=== PATIENT | female | born 1965 ===

== ENCOUNTER 2023-01-22 00:17 | Emergency (ER) | payer BC, SELFPAY ==
[2023-01-22] MEDS ORDERED: NA CHLORIDE 0.9% 1,000 ML ONE (01:09)
[2023-01-22 01:17] LABS: Absolute Lymphocytes (CBC) 1.9 K/uL (0.7-4.9); Hematocrit 39.7 % (36.0-45.0); Lymphocytes % 16.4 % (15.3-44.8); MCV 89.4 fL (80-100); MPV 6.9 fL (7.6-11.3); Platelets 307 thou/uL (152-406); RBC Red Blood Cell Count 4.44 M/uL (3.86-4.86)
[2023-01-22 01:32] LABS: Potassium 3.4 mEq/L (3.5-5.1)
[2023-01-22] MEDS ORDERED: ACETAMINOPHEN 500 MG TAB ONE (02:33)
[2023-01-22] MEDS ORDERED: KETOROLAC 30 MG/ML INJ ONE (02:33)
--- NOTE | 2023-01-22 02:37 | ER ---
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 Coronavirus screen: Vaccine status: Patient reports receiving the 2nd dose of the covid vaccine. Ebola Screen: Patient negative for fever greater than or equal to 101.5 degrees Fahrenheit, and additional compatible Ebola Virus Disease symptoms. Initial Sepsis Screen: Does the patient meet any 2 criteria? No. Patient's initial sepsis screen is negative. Does the patient have a suspected source of infection? No. Patient's initial sepsis screen is negative. Risk Assessment: Do you want to hurt yourself or someone else? Patient reports no desire to harm self or others. 00:39 Method Of Arrival: Wheelchair kl 00:39 Acuity: DAREK 3 kl Triage Assessment: 00:41 General: Appears distressed, uncomfortable, Behavior is cooperative. Pain: Complains of kl pain in left side of the back of head Pain currently is 6 out of 10 on a pain scale. Injury Description: Head injury sustained to right parietal area is closed, did not have loss of consciousness, was sustained 2-4 hours ago. Historical: - Allergies: 00:41 No Known Allergies; kl - Immunization history:: Adult Immunizations unknown. - Social history:: Smoking status: Patient denies any tobacco usage or history of. Screenin:19 [facility] ED Fall Risk Assessment (Adult) History of falling in the last 3 months, jb4 including since admission. Abuse screen: Denies threats or abuse. Nutritional screening: No deficits noted. Tuberculosis screening: No symptoms or risk factors identified. Assessment: 01:17 General: Appears in no apparent distress. comfortable, Behavior is calm, cooperative. jb4 Pain: Complains of pain in scalp Pain does not radiate. Pain currently is 8 out of 10 on a pain scale. Neuro: Level of Consciousness is alert, obeys commands, lethargic, Oriented to person, place, time, situation, Moves all extremities. Full function Speech is normal, Facial symmetry appears normal, Pupils are PERRLA. Cardiovascular: Patient's skin is warm and dry. Respiratory: Airway is patent Respiratory effort is even, unlabored, Respiratory pattern is regular, symmetrical. GI: : No signs and/or symptoms were reported regarding the genitourinary system. EENT: No signs and/or symptoms were reported regarding the EENT system. Derm: Skin is intact, Skin is pink, warm \T\ dry. Musculoskeletal: Circulation, motion, and sensation intact. Range of motion: intact in all extremities. 02:03 Reassessment: Pt is resting in bed with eye closed, respirations are even and unlabored jb4 with no s/s of pain or distress noted. Vital Signs: 00:39 BP 137 / 91; Resp 20; kl 01:28 BP 140 / 83; Pulse 82; Resp 16; Pulse Ox 95% on R/A; jb4 02:04 BP 140 / 83; Pulse 90; Resp 16; Pulse Ox 100% on R/A; jb4 ED Course: 00:20 Patient arrived in ED. jj6 00:26 Sharon Parrish PA-C is PHCP. sb4 00:26 Shell Harrison MD is Attending Physician. sb4 00:41 Triage completed. kl 01:08 Initial lab(s) drawn, by me, sent to lab. Inserted saline lock: 20 gauge in right jb4 antecubital area, using aseptic technique. Blood collected. 01:13 Artur Waggoner, RN is Primary Nurse. jb4 01:19 Patient has correct armband on for positive identification. Bed in low position. Call 4 light in reach. Side rails up X 1. 01:28 CT Head C Spine In Process Unspecified. EDMS Administered Medications: 01:13 Drug: NS 0.9% IV 1000 ml Route: IV; Rate: 1 bolus; Site: right antecubital; jb4 02:26 Drug: Acetaminophen PO 1000 mg Route: PO; jb4 02:26 Drug: Ketorolac IVP 30 mg Route: IVP; Site: right antecubital; jb4 Outcome: 02:37 Discharge ordered by . sb4 02:55 Patient left the ED. kl Signatures: Dispatcher [employer] EDMS Glen, Diesy, Artur Garcia RN, RN RN jb4 Michelle Malin jj6 Sharon Parrish, PA-C PA-C sb4 Corrections: (The following items were deleted from the chart) 01:28 01:17 Neuro: Level of Consciousness is alert, obeys commands, lethargic, Oriented to jb4 person, place, time, situation, jb4
--- NOTE | 2023-01-22 02:38 | EDPHYS ---
Physician Documentation [facility] Name: Diana Menendez Age: 57 yrs Sex: Female : 1965 Arrival Date: 01/22/2023 Time: 00:17 Bed 2 Private MD: ED Physician Shell Harrison HPI: 01/22 00:42 This 57 yrs old Female presents to ER via Wheelchair with complaints of Fall Injury, sb4 Head Injury Without LOC-Adult. 00:42 Details of fall: The patient fell from an upright position, while dancing. Onset: The sb4 symptoms/episode began/occurred 2 hour(s) ago. Associated injuries: The patient sustained injury to the head, hematoma, pain. The patient has not experienced similar symptoms in the past. The patient has not recently seen a physician. 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 she did not lose consciousness nor is she on blood thinners. her and friend took her home and noticed that she had a nose bleed, was vomiting, and was complaining of moderate headache. Historical: - Allergies: 00:41 No Known Allergies; kl - Immunization history:: Adult Immunizations unknown. - Social history:: Smoking status: Patient denies any tobacco usage or history of. ROS: 00:42 Constitutional: Negative for fever, chills, and weight loss, Eyes: Negative for injury, sb4 pain, redness, and discharge, Neck: Negative for injury, pain, and swelling, Cardiovascular: Negative for chest pain, palpitations, and edema, Respiratory: Negative for shortness of breath, cough, wheezing, and pleuritic chest pain, Back: Negative for injury and pain, MS/Extremity: Negative for injury and deformity, Skin: Negative for injury, rash, and discoloration. 00:42 ENT: Positive for nose bleed. 00:42 Abdomen/GI: Positive for nausea, vomiting. 00:42 Neuro: Positive for headache. 00:42 Hematologic/Lymphatic: 00:42 All other systems are negative. Exam: 00:42 Cardiovascular: Regular rate and rhythm with a normal S1 and S2. Respiratory: Lungs sb4 have equal breath sounds bilaterally, clear to auscultation and percussion. No rales, rhonchi or wheezes noted. No increased work of breathing, no retractions or nasal flaring. Abdomen/GI: Soft, non-tender, no distension. 00:42 Constitutional: The patient appears alert, awake, smells of alcohol, ETOH, uncooperative, altered, intoxicated 00:42 Head/face: Exam is negative for laceration(s), raccoon eyes, Noted is hematoma, that is moderate, of the back of head. 00:42 ENT: Nose: bleeding, is seen from the left nare, and is minimal, dried. 00:42 ENT: Exam is negative for ear discharge. 00:42 Skin: hematoma to the back of scalp. 00:42 Neuro: Orientation: to person, place, time \T\ situation. Mentation: is normal, appropriate for stated age, lucid, able to follow commands, Sensation: is normal. Vital Signs: 00:39 BP 137 / 91; Resp 20; kl 01:28 BP 140 / 83; Pulse 82; Resp 16; Pulse Ox 95% on R/A; jb4 02:04 BP 140 / 83; Pulse 90; Resp 16; Pulse Ox 100% on R/A; jb4 MDM: 00:26 Patient medically screened. sb4 00:42 Differential diagnosis: closed head injury, contusion, fracture, multiple trauma. sb4 02:57 Data reviewed: vital signs, nurses notes, lab test result(s), radiologic studies, and sb4 as a result, I will discharge patient. Consideration of Admission/Observation Escalation of care including admission/observation considered. Historians other than the Patient: significant other and friend. Counseling: I had a detailed discussion with the patient and/or guardian regarding: the historical points, exam findings, and any diagnostic results supporting the discharge/admit diagnosis, the presence of at least one elevated blood pressure reading (>120/80) during this emergency department visit, lab results, radiology results, to return to the emergency department if symptoms worsen or persist or if there are any questions or concerns that arise at home. Medication response: Toradol markedly relieved the patient's pain. Special discussion: Based on the patient's history, exam and DX evaluation, there is no indication for emergent intervention or inpatient TX. It is understood by the patient/guardian that if the SXs persist or worsen they need to return immediately for re-evaluation. ED course: pain has improved. head ct neg. mentation also improving. family wishes to take her home. neuro exam benign. return precautions given. 01/22 00:39 Order name: Basic Metabolic Panel; Complete Time: :37 sb4 01/22 00:39 Order name: CBC with Diff; Complete Time: 01:37 sb4 01/22 00:39 Order name: Type And Screen; Complete Time: 02:36 sb4 01/22 00:39 Order name: ETOH Level; Complete Time: :37 sb4 01/22 00:39 Order name: CT Head C Spine sb4 01/22 00:39 Order name: Labs collected and sent; Complete Time: : sb4 Administered Medications: : Drug: NS 0.9% IV 1000 ml Route: IV; Rate: 1 bolus; Site: right antecubital; jb4 02:26 Drug: Acetaminophen PO 1000 mg Route: PO; jb4 02:26 Drug: Ketorolac IVP 30 mg Route: IVP; Site: right antecubital; jb4 Disposition Summary: 01/22/23 02:37 Discharge Ordered Location: Home sb4 Problem: new sb4 Symptoms: have improved sb4 Condition: Stable sb4 Diagnosis - Concussion without loss of consciousness sb4 - Contusion of scalp, initial encounter sb4 Followup: sb4 - With: Emergency Department - When: As needed - Reason: Worsening of condition Discharge Instructions: - Discharge Summary Sheet sb4 - Facial or Scalp Contusion sb4 - Hematoma sb4 - Post-Concussion Syndrome, [id number] sb4 - Concussion, Adult, [id number] sb4 Forms: - Medication Reconciliation Form sb4 - Thank You Letter sb4 - Antibiotic Education sb4 - Prescription Opioid Use sb4 - Patient Portal Instructions sb4 - Leadership Thank You Letter sb4 Prescriptions: - ketorolac 10 mg Oral tablet - take 1 tablet by ORAL route every 4 to 6 hours for 3 days as needed for pain; sb4 do not exceed 4 doses per 24 hrs; 12 tablet; Refills: 0, Product Selection Permitted Signatures: Dispatcher [employer] Deisy Faust RN RN kl Bryson, James, RN RN jb4 Sharon Parrish PA-C PA-C sb4 Corrections: (The following items were deleted from the chart) 01:14 00:42 patient was at her 40 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 she did not lose consciousness nor is she on blood thinners. her and friend took her home and noticed that she had a nose bleed, was vomiting, and was complaining of severe pain. sb4
[2023-01-22 03:01] VITALS: BP 140/83
[2023-01-22 03:03] VITALS: O2SAT 100
--- NOTE | 2023-01-23 12:37 | RAD REPORT ---
EXAM DESCRIPTION: CT - Head C Spine Mpr Wo Con - 01/22/2023 7:05 am CLINICAL HISTORY: TRAUMA TECHNIQUE: Axial computed tomography images of the head/brain and cervical spine without intravenous contrast. Sagittal and coronal reformatted images were created and reviewed. This CT exam was pe rformed using one or more of the following dose reduction techniques: automated exposure control, a djustment of the mA and/or kV according to patient size, and/or use of iterative reconstruction techn ique. COMPARISON: No relevant prior studies available. FINDINGS: Brain: CSF density focus at the inferior aspect of the right basal ganglia most compatib le with a prominent perivascular space. No hemorrhage. No significant white matter disease. Ventricles: Unremarkable. No ventriculomegaly. Skull: No acute fracture. Sinuses: Unremarkable as visualized. No acute sinusitis. Mastoid air cells: Unremarkable as visualized. No mastoid effusion. Vertebrae: Loss of normal lordosis which can be seen secondary to patient positioning, pain or musc le spasm. No acute fracture or subluxation. Discs/spinal canal/neural foramina: Multilevel degenerative changes manifested by moderate to sever e disc degeneration and prominent concentric disc osteophytes most pronounced at C4-C5 through C6-C7. Mild multilevel facet arthropathy. No critical canal stenosis. Soft tissues: Moderate right paracentral parieto-occipital soft tissue contusion. IMPRESSION: 1. No acute intracranial or extra-axial abnormality. 2. No acute cervical spine injury. 3. Other findings as above. Electronically signed by: Edwin Bailon MD 01/22/2023 1:46 AM CDT Due to temporary technical issues with the PACS/Fluency reporting system, reports are being signed by the in house radiologist without review as a courtesy to ensure prompt reporting. The interpreting r adiologist is fully responsible for the content of the report.
== END 2023-01-22 02:55 | disposition home or self-care (01) ==
LOC: ER 00:17
DX: S06.0X0A Concussion without loss of consciousness, initial encounter (principal)
CPT/HCPCS: 85025; 80048; 36415; 86900; 86850; 86901; 70450; 72125; 96374; 99284; 82077; J7030